=== PATIENT | female | born 1985 | race Caucasian/White ===

== ENCOUNTER 2022-02-23 23:13 | Emergency (ER) | payer OTHER ==
[2022-02-23 23:17] VITALS: BP 111/72; PULSE 72; RESP 18; TEMP 97.8
[2022-02-24 01:26] LABS: BASO % 0.3 % (0-2.0); EOS % 1.4 % (0-4.5); HEMATOCRIT 35.2 % (32.4-45.2); HEMOGLOBIN 12.4 GM/dL (10.7-15.3); LYMPH % 31.1 % (8-40); MCH 31.6 pg (25.7-33.7); MCHC 35.4 g/dl (32.0-36.0); MEAN CELL VOLUME 89.2 fl (80-96); MEAN PLT VOLUME 7.3 fl (7.5-11.1); MONO % 5.3 % (3.8-10.2); NEUT % 61.9 % (42.8-82.8); PLATELET COUNT 252 10^3/uL (134-434); RBC 3.95 M/mm3 (3.60-5.2); RDW 13.4 % (11.6-15.6); WHITE BLOOD COUNT 8.2 K/mm3 (4.0-10.0)
[2022-02-24 01:46] LABS: CALCIUM 8.4 mg/dL (8.5-10.1)
[2022-02-24 01:47] LABS: ALBUMIN 3.2 g/dl (3.4-5.0); BLOOD UREA NITROGEN 5.7 mg/dL (7-18)
[2022-02-24 01:50] LABS: CREATININE 0.5 mg/dL (0.55-1.3)
[2022-02-24 01:51] LABS: BILIRUBIN,TOTAL 0.3 mg/dL (0.2-1); TOT PROT 6.5 g/dl (6.4-8.2)
== END 2022-02-24 03:19 | disposition home or self-care (01) ==
LOC: JER 23:13
DX: O26.851 Spotting complicating pregnancy, first trimester (principal); Z3A.12 12 weeks gestation of pregnancy
CPT/HCPCS: 36415; 76801-TC; 80053; 85025; 86850; 86900; 86901; 99284-25

== ENCOUNTER 2022-06-14 15:27 | Emergency (ER) | payer OTHER ==
[2022-06-14 15:36] VITALS: RESP 18; BMI 32.4
[2022-06-14] MEDS ORDERED: ACETAMINOPHEN 325 MG TABLET (FP) PO ONE (17:32)
[2022-06-14] MEDS ORDERED: OSELTAMIVIR PHOSPHATE 75 MG CAPSULE PO ONE (19:05)
[2022-06-14] MEDS ORDERED: OSELTAMIVIR PHOSPHATE 75 MG CAPSULE ONE (19:23)
[2022-06-14 20:18] LABS: PH,URINE 5.5 (5.0-8.0); URINE APPEARANCE CLEAR; URINE BILIRUBIN NEGATIVE (NEGATIVE); URINE COLOR YELLOW; URINE GLUCOSE (UA) NEGATIVE (NEGATIVE); URINE KETONE 3+ (NEGATIVE); URINE LEUK ESTERASE NEGATIVE (NEGATIVE); URINE NITRITE NEGATIVE (NEGATIVE); URINE PROTEIN TRACE (NEGATIVE)
[2022-06-14] MEDS ORDERED: OSELTAMIVIR PHOSPHATE 45 MG CAPSULE PO SCH (22:00)
[2022-06-14 22:05] VITALS: BP 105/59; PULSE 93; TEMP 97.8
== END 2022-06-14 22:46 | disposition home or self-care (01) ==
LOC: JER 15:27
DX: O98.513 Other viral diseases complicating pregnancy, third trimester (principal); J09.X2 Influenza due to identified novel influenza A virus with other respiratory manifestations; Z3A.29 29 weeks gestation of pregnancy
CPT/HCPCS: 0241U-QW; 81003; 99283-25

== ENCOUNTER 2024-12-16 11:40 | Emergency (ER) | payer OTHER ==
[2024-12-16 12:03] VITALS: BP 108/55; PULSE 68; RESP 18; TEMP 98.1; BMI 34.2
[2024-12-16] MEDS ORDERED: CycloBENZAprine HCL 10 MG TABLET (FP) ONE (12:43)
[2024-12-16] MEDS ORDERED: DEXAMETHASONE SOD PHOSPHATE 10 MG/1 ML VIAL ONE (12:43)
[2024-12-16] MEDS ORDERED: KETOROLAC TROMETHAMINE 15 MG/ML VIAL ONE (12:43)
[2024-12-16] MEDS: DEXAMETHASONE SOD PHOSPHATE 10 MG/1 ML VIAL IM ONE (12:53)
[2024-12-16] MEDS: KETOROLAC TROMETHAMINE 15 MG/ML VIAL IM ONE (12:53)
[2024-12-16] MEDS: CycloBENZAprine HCL 10 MG TABLET (FP) PO ONE (12:53)
[2024-12-16] MEDS ORDERED: LIDOCAINE 4% PATCH TP ONE (12:57)
[2024-12-16] MEDS: LIDOCAINE 4% PATCH TP ONE (12:59)
[2024-12-16 15:20] LABS: HCV DIAGNOSTIC IN-HOUSE W/RFLX NON-REACTIVE (NONREACTIVE)
[2024-12-16] MEDS ORDERED: LIDOCAINE PATCH REMOVAL MC SCH (22:00)
[2024-12-18 20:23] LABS: HIV INTERPRETATION NEGATIVE (NEGATIVE)
== END 2024-12-16 13:36 | disposition home or self-care (01) ==
LOC: JERFT 11:40
PROC: 3E0233Z Introduction of Anti-inflammatory into Muscle, Percutaneous Approach (ICD-10-PCS; principal; 2024-12-16)
PROC: 3E023GC Introduction of Other Therapeutic Substance into Muscle, Percutaneous Approach (ICD-10-PCS; 2024-12-16)
DX: M54.31 Sciatica, right side (principal); R20.2 Paresthesia of skin; M53.3 Sacrococcygeal disorders, not elsewhere classified
CPT/HCPCS: 36415; 86803; 87389; 99284-25; J1100